=== PATIENT | female | born 1965 | race Caucasian/White ===

== ENCOUNTER 2017-02-26 10:34 | Emergency (ER) | payer OTHER, MEDICARE ==
[2017-03-31] MEDS ORDERED: GABAPENTIN100 MG PO (12:10)
[2017-03-31] MEDS ORDERED: FLEXERIL 10 MG10 MG PO (12:11)
[2017-03-31] MEDS ORDERED: LIDOCAINE-PRIL1 EACH TP (12:11)
[2017-03-31] MEDS ORDERED: ASPIR-TRIN325 MG PO (15:05)
[2017-03-31] MEDS ORDERED: COL-RITE250 MG PO (15:06)
[2017-03-31] MEDS ORDERED: PERCOCET 5-3251 EACH PO (15:08)
[2017-03-31] MEDS ORDERED: ZOFRAN4 MG PO (15:08)
== END 2017-02-26 13:15 | disposition home or self-care (01) ==
LOC: ER1 10:34
DX: G89.29 Other chronic pain (principal); M25.562 Pain in left knee; F17.210 Nicotine dependence, cigarettes, uncomplicated; Z88.0 Allergy status to penicillin; Z88.6 Allergy status to analgesic agent
CPT/HCPCS: 73564; 99283; J1100; J1885

== ENCOUNTER → 2017-03-30 | Outpatient (CLI) | payer OTHER, MEDICARE ==
[~2017-03-30] MED LIST: ASPIR-TRIN325 MG PO; COL-RITE250 MG PO; FLEXERIL 10 MG10 MG PO; GABAPENTIN100 MG PO; LIDOCAINE-PRIL1 EACH TP; PERCOCET 5-3251 EACH PO; ZOFRAN4 MG PO
[2017-03-30 13:53] LABS: BUN/CREATININE RATIO 18 (0-10)
== END ==
LOC: OPSV2 12:30
PROVIDERS: Orthopaedic Surgery
DX: Z01.810 Encounter for preprocedural cardiovascular examination (principal); Z01.812 Encounter for preprocedural laboratory examination; M25.562 Pain in left knee
CPT/HCPCS: 36415; 80048; 93005

== ENCOUNTER → 2017-03-31 | Day surgery (SDC) | payer OTHER, MEDICARE ==
[~2017-03-31] VITALS: Ht 167.6 cm; Wt 72.1 kg
== END | disposition home or self-care (01) ==
LOC: OR 08:45
PROVIDERS: Orthopaedic Surgery
PROC: 0SBD4ZZ Excision of Left Knee Joint, Percutaneous Endoscopic Approach (ICD-10-PCS; principal; 2017-03-31 08:45)
DX: M84.352A Stress fracture, left femur, initial encounter for fracture (principal); M23.304 Other meniscus derangements, unspecified medial meniscus, left knee; M94.262 Chondromalacia, left knee; I34.1 Nonrheumatic mitral (valve) prolapse; M19.90 Unspecified osteoarthritis, unspecified site; G89.29 Other chronic pain; F17.210 Nicotine dependence, cigarettes, uncomplicated; Z88.0 Allergy status to penicillin; Z88.8 Allergy status to other drugs, medicaments and biological substances; Z79.899 Other long term (current) drug therapy
CPT/HCPCS: 73560; 76000; C1713; J0171; J1200; J1885; J2250; J2710; J3010; J7120

== ENCOUNTER → 2020-10-25 | Outpatient (CLI) | payer BC, OTHER ==
[~2020-10-25] MED LIST changes: +ADIPEX-P37.5 M1 PO; +CLARITIN10 MG PO; +DESYREL 50 MG T50 MG PO; +DOSS PO; +FOLIC ACID 1 MG1 MG PO; +GABAPENTIN300 MG PO; +IBUPROFEN800 MG PO; +NAPROSYN500 MG PO; +NORCO 7.5-3251 EACH PO; +NORFLEX 100 MG100 MG PO; +ONCE DAILY1 EACH PO; +PERCOCET 7.5-31 EACH PO; +TYLENOL WITH C1 EACH PO; +ULTRAM50 MG PO; +Voltaren Gel 1% TOP; +[UNRECOGNIZED DRUG - OTHER] SC
== END ==
LOC: KOH-I 09:24
DX: M25.572 Pain in left ankle and joints of left foot (principal); R93.6 Abnormal findings on diagnostic imaging of limbs
CPT/HCPCS: 73610

== ENCOUNTER → 2020-11-16 | Outpatient (CLI) | payer BC, OTHER | LOC: KOH-I 11-06 08:00 | DX: M25.472 Effusion, left ankle (principal); M25.572 Pain in left ankle and joints of left foot; S86.312A Strain of muscle(s) and tendon(s) of peroneal muscle group at lower leg level, left leg, initial encounter; M77.52 Other enthesopathy of left foot and ankle; X58.XXXA Exposure to other specified factors, initial encounter | CPT/HCPCS: 73721 ==

== ENCOUNTER → 2021-05-23 | Outpatient (CLI) | payer BC, OTHER | LOC: KOH-I 09:20 | DX: M25.572 Pain in left ankle and joints of left foot (principal) | CPT/HCPCS: 73610 ==

== ENCOUNTER → 2021-08-19 | Outpatient (CLI) | payer BC, OTHER ==
[~2021-08-19] MED LIST changes: +CBD PO; +CBD TOP; -GABAPENTIN300 MG PO; +GABAPENTIN400 MG PO; +HYDROCODON-ACE1 EAC4 PO; +MOBIC15 MG PO; +PAXIL10 MG PO; +[UNRECOGNIZED DRUG - OTHER] TOP
[2021-08-19 12:22] LABS: HEMOGLOBIN 13.2 gm/dl (12.3-15.3); RED BLOOD COUNT 4.42 M/UL (4.00-5.10); WHITE BLOOD COUNT 6.3 K/UL (4.5-11.0)
[2021-08-19 12:46] LABS: BUN/CREATININE RATIO 12 (0-10)
== END ==
LOC: OPSV2 11:48
PROVIDERS: Podiatrist Foot & Ankle Surgery
DX: Z01.818 Encounter for other preprocedural examination (principal); S86.312A Strain of muscle(s) and tendon(s) of peroneal muscle group at lower leg level, left leg, initial encounter; S99.912A Unspecified injury of left ankle, initial encounter; X58.XXXA Exposure to other specified factors, initial encounter; Z88.0 Allergy status to penicillin; Z88.6 Allergy status to analgesic agent
CPT/HCPCS: 36415; 71046; 80048; 85027; 93005

== ENCOUNTER → 2021-09-13 | Day surgery (SDC) | payer BC, OTHER | END | disposition home or self-care (01) | LOC: OR 08-28 11:45 | DX: S93.492A Sprain of other ligament of left ankle, initial encounter (principal); M25.372 Other instability, left ankle; G89.29 Other chronic pain; S86.312A Strain of muscle(s) and tendon(s) of peroneal muscle group at lower leg level, left leg, initial encounter; M67.272 Synovial hypertrophy, not elsewhere classified, left ankle and foot; X58.XXXA Exposure to other specified factors, initial encounter; M79.7 Fibromyalgia; M19.90 Unspecified osteoarthritis, unspecified site; Z88.0 Allergy status to penicillin; Z88.8 Allergy status to other drugs, medicaments and biological substances; Z79.1 Long term (current) use of non-steroidal anti-inflammatories (NSAID); Z79.899 Other long term (current) drug therapy | CPT/HCPCS: C1713; J0171; J1100; J1885; J2001; J2405; J2704; J2710; J2795; J3010; J7030; J7120; Q4133 ==